=== PATIENT | female | born 1945 | race Caucasian/White ===

== ENCOUNTER 2020-11-28 05:41 | Day surgery (SDC) | payer MEDICARE ==
[2020-11-27 13:58] LABS: COVID AG,FIA SOURCE NASOPHARYNGEAL
[~2020-11-28] VITALS: Ht 170.2 cm; Wt 87.7 kg
[~2020-11-28 05:41] MED LIST: KETOROLAC TROMETHAMINE 0.5% 5 ML OPHTHALMIC SOLUTION ONE; MOXIFLOXACIN HCL 0.5% 3 ML OPHTHALMIC SOLUTION ONE; PHENYLEPHRINE HCL 2.5% 2 ML OPHTHALMIC SOLUTION ONE; RINGERS SOLUTION,LACTATED 500 ML IV ONE; TROPICAMIDE 1% 2 ML OPHTHALMIC SOLUTION ONE
[2020-11-28] MEDS ORDERED: EPINEPHrine 1:1,000 [1 MG/ML] AMP IM ONE (05:42)
[2020-11-28] MEDS ORDERED: CHONDR SULF A SOD/HYALURONATE 1.05 ML KIT IO ONE (05:42)
[2020-11-28] MEDS ORDERED: BALANCED SALT 15 ML OPHTHALMIC IRRIG.SOLN OS ONE (05:42)
[2020-11-28] MEDS ORDERED: LIDOCAINE/PF 1% 2 ML VIAL IM ONE (05:42)
[2020-11-28] MEDS ORDERED: FentaNYL CITRATE PF 100 MCG/2 ML VIAL IVP ONE (05:42)
[2020-11-28] MEDS ORDERED: POVIDONE-IODINE 10% 15 ML SOLUTION UD TP ONE (05:42)
[2020-11-28] MEDS ORDERED: MIDAZOLAM HCL 2 MG/2 ML VIAL IVP ONE (05:42)
[2020-11-28] MEDS ORDERED: TETRACAINE HCL/PF 0.5% 4 ML OPHTHALMIC SOLUTION OS ONE (05:42)
[2020-11-28] MEDS: PHENYLEPHRINE HCL 2.5% 2 ML OPHTHALMIC SOLUTION OS SCH ×3 (06:33→06:43)
[2020-11-28] MEDS: TROPICAMIDE 1% 2 ML OPHTHALMIC SOLUTION OS SCH ×3 (06:33→06:43)
[2020-11-28] MEDS: MOXIFLOXACIN HCL 0.5% 3 ML OPHTHALMIC SOLUTION OS SCH ×3 (06:33→06:43)
[2020-11-28] MEDS: KETOROLAC TROMETHAMINE 0.5% 5 ML OPHTHALMIC SOLUTION OS SCH ×3 (06:33→06:43)
[2020-11-28] MEDS ORDERED: LISI40TA9 PO (07:51)
[2020-11-28] MEDS ORDERED: AMLO5TAB66 PO (07:51)
[2020-11-28] MEDS ORDERED: FOLI-74 PO (07:51)
[2020-11-28] MEDS ORDERED: ASCO500 PO (07:51)
[2020-11-28] MEDS ORDERED: VITA-328 PO (07:51)
[2020-11-28] MEDS ORDERED: CHOL100044 PO (07:51)
[2020-11-28] MEDS ORDERED: FLUO-176 PO (07:51)
[2020-11-28] MEDS ORDERED: GABA-1181 PO (07:51)
[2020-11-28] MEDS ORDERED: OXYC10TA59 PO (07:51)
[2020-11-28] MEDS ORDERED: CYCL10 PO (07:51)
== END 2020-11-28 08:35 | disposition home or self-care (01) ==
LOC: SURGERY 05:41
PROVIDERS: ATTEND Ophthalmology
DX: H25.22 Age-related cataract, morgagnian type, left eye (principal); Z90.710 Acquired absence of both cervix and uterus; Z98.890 Other specified postprocedural states; Z79.899 Other long term (current) drug therapy; Z98.84 Bariatric surgery status; I10 Essential (primary) hypertension; E66.3 Overweight; G89.29 Other chronic pain; Z86.73 Personal history of transient ischemic attack (TIA), and cerebral infarction without residual deficits
CPT/HCPCS: 66982; 87426; 93005; A9575; C9803; J0171; J2250; J3010; J3490; J7120; V2632